=== PATIENT | male | born 1935 | race Caucasian/White ===

== ENCOUNTER 2017-02-10 09:20 | Outpatient (RCR) | payer MEDICARE, OTHER ==
[~2017-02-10 09:20] MED LIST: AMLODIPINE BESYL5 MG PO; METOPROLOL SUCC50 MG PO; MINERAL OIL/PETROLAT/GLYCERI 6OZ BTL ONE; MUPIROCIN 2% OINT 22 GM TUBE ONE; PRAVASTATIN SOD20 MG PO; QUINAPRIL HCL20 MG PO; SUCRALFATE1 GM PO; WARFARIN SODIUM5 MG PO; ZANTAC150 MG PO
== END 2017-02-23 ==
LOC: WCC 09:20
PROVIDERS: ATTEND Plastic Surgery
DX: C43.59 Malignant melanoma of other part of trunk (principal); I79.8 Other disorders of arteries, arterioles and capillaries in diseases classified elsewhere; I87.2 Venous insufficiency (chronic) (peripheral); I10 Essential (primary) hypertension; E78.2 Mixed hyperlipidemia
CPT/HCPCS: 29581 ×4; G0463 ×2

== ENCOUNTER 2017-06-19 11:26 | Observation (INO) | payer MEDICARE, OTHER ==
[2017-06-18 10:27] LABS: BASOPHILS # (AUTO) 0.1 (0.0-0.1); BASOPHILS % 1.2 % (0.0-1.0); EOSINOPHILS # (AUTO) 0.2 (0.0-0.4); EOSINOPHILS % 3.7 % (0.0-6.0); HEMATOCRIT 43.7 % (38.2-49.6); HEMOGLOBIN 14.2 g/dL (14.0-18.0); LYMPHOCYTES # (AUTO) 0.7 (1.0-3.2); LYMPHOCYTES % 13.7 % (18.0-39.1); MEAN CORPUSCULAR HEMOGLOBIN 31.5 pg (28-32); MEAN CORPUSCULAR HGB CONC 32.5 g/dL (31-35); MEAN CORPUSCULAR VOLUME 96.9 fL (81-99); MONOCYTES # (AUTO) 0.7 (0.2-0.8); MONOCYTES % 12.7 % (4.4-11.3); NEUTROPHILS # (AUTO) 3.5 (2.1-6.9); NEUTROPHILS % 68.5 % (38.7-80.0); PLATELET COUNT 110 x10e3/uL (140-360); RED BLOOD COUNT 4.51 x10e6/uL (4.3-5.7); RED CELL DISTRIBUTION WIDTH 13.9 % (11.7-14.4)
[2017-06-18 10:41] LABS: INR 1.52; PROTHROMBIN TIME 17.2 seconds (11.9-14.5)
[2017-06-18 10:48] LABS: ANION GAP 12.6 mmol/L (8-16); BLOOD UREA NITROGEN 16 mg/dL (7-26); BUN/CREATININE RATIO 20 (6-25); CALCIUM 9.9 mg/dL (8.4-10.2); CARBON DIOXIDE 32 mmol/L (22-29); CHLORIDE 99 mmol/L (98-107); EST GLOMERULAR FILTRATION RATE > 60 ML/MIN (60-); GLUCOSE 103 mg/dL (74-118); POTASSIUM 4.6 mmol/L (3.5-5.1); SODIUM 139 mmol/L (136-145)
[~2017-06-19] VITALS: Ht 175.3 cm; Wt 75.7 kg
[2017-06-19] VITALS (8 sets, daily range): BP systolic 122–144; BP diastolic 77–96
[~2017-06-19 11:26] MED LIST changes: -MINERAL OIL/PETROLAT/GLYCERI 6OZ BTL ONE; -MUPIROCIN 2% OINT 22 GM TUBE ONE
[2017-06-19] MEDS ORDERED: LASIX40 MG PO (12:15)
[2017-06-19] MEDS ORDERED: POTASSIUM CHLO10 ME1 PO (12:16)
[2017-06-19] MEDS ORDERED: COLACE100 MG PO (12:17)
[2017-06-19] MEDS ORDERED: LIDOCAINE HCL 2% LOCAL 20 ML VIAL ONE (15:14)
[2017-06-19] MEDS ORDERED: SODIUM CHLORIDE 0.9% 250ML 250 ML ONE (15:15)
[2017-06-19] MEDS ORDERED: SODIUM CHLORIDE 0.9% 1000ML 1,000 ML ONE (15:15)
[2017-06-19] MEDS ORDERED: VANCOMYCIN 1GM/NS 250 ML 0 ML ONE (15:15)
[2017-06-19] MEDS ORDERED: VANCOMYCIN HCL 2 GM in SODIUM CHLORIDE 0.9% 500ML 500 ML IV ONE (15:30)
[2017-06-19] MEDS ORDERED: BACITRACIN 50,000 UNIT VIAL ONE (16:11)
[2017-06-19] MEDS ORDERED: MIDAZOLAM HCL 2 MG/2 ML VIAL ONE (16:20)
[2017-06-19] MEDS ORDERED: SODIUM CHLORIDE 0.9% 500ML 500 ML ONE (16:21)
[2017-06-19] MEDS ORDERED: FENTANYL CITRATE/PF 100MCG/2 ML INJ ONE (16:25)
[2017-06-19] MEDS ORDERED: MORPHINE SULFATE 2 MG/ML SYR IV PRN (18:45)
[2017-06-19] MEDS ORDERED: VANCOMYCIN 1GM/NS 250 ML 250 ML IV ONE (19:00)
--- NOTE | 2017-06-19 20:48 | Diagnostic Imaging Report ---
EXAMINATION: CHEST SINGLE (PORTABLE) INDICATION: \S\POST ICD PLACEMENT \S\[id number] \S\1900 \S\PATIENT IS IN ACU BAY 9 COMPARISON: 08/07/2016 FINDINGS: TUBES and LINES: Left chest dual lead cardiac device with 2 leads over the heart. LUNGS: Hypoinflated lungs with pulmonary vascular congestion and likely atelectasis at the lung bases right side greater than left PLEURA: Likely small right pleural effusion. No pneumothorax is seen. HEART AND MEDIASTINUM: Cardiomegaly with pulmonary vascular congestion. BONES AND SOFT TISSUES: No acute osseous lesion. Soft tissues are unremarkable. UPPER ABDOMEN: No free air under the diaphragm. IMPRESSION: Cardiomegaly with pulmonary vascular congestion and likely small right pleural effusion. Left chest dual lead cardiac device with leads over the heart. No pneumothorax is seen. Follow-up imaging is indicated to document clearing. Signed by: Dr. Rodríguez Vogel M.D. on 06/19/2017 8:45 PM
[2017-06-20] VITALS: BP 126/77
[2017-06-20 04:00] VITALS: BP 133/80
[2017-06-20 08:38] VITALS: BP 136/77
[2017-06-20 11:02] VITALS: BP 136/77
[2017-06-20] MEDS ORDERED: MINOCYCLINE HCL50 MG PO (11:07)
[2017-06-20] MEDS ORDERED: ULTRAM50 MG PO (11:08)
--- NOTE | 2017-07-09 13:43 | Operative Report ---
DATE OF PROCEDURE: June 19, 2017 PREPROCEDURE DIAGNOSES 1. Complete heart block. 2. Significant right ventricular pacing. 3. Permanent atrial fibrillation. 4. Congestive heart failure, class III, likely worsened by right ventricular pacing. 5. Single-chamber pacemaker in place. 6. 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 POSTPROCEDURE DIAGNOSES 1. Complete heart block. 2. Significant right ventricular pacing. 3. Permanent atrial fibrillation. 4. Congestive heart failure, class III, likely worsened by right ventricular pacing. 5. Single-chamber pacemaker in place. 6. 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 ESTIMATED BLOOD LOSS: 5 mL. COMPLICATIONS: None. PROCEDURES PERFORMED 1. Upgrade to biventricular cardiac defibrillator. 2. Moderate sedation. Moderate conscious sedation was provided under my direct supervision by sedation-trained nurse. Sedation approximate time 45 minutes. There were no complications. See sedation form for details. DESCRIPTION OF PROCEDURE: After informed consent was obtained, the patient was brought to the electrophysiology laboratory in a fasting, nonsedated state. The area over his chest was prepped and draped in the usual sterile fashion. Moderate sedation and prophylactic antibiotic were given. One percent lidocaine was used as local anesthetic. A 3-cm skin incision was made in the left subclavicular area. Electrocautery and sharp and blunt dissection were used to reach the previous device, and the pacemaker was freed out of the pocket. Vascular access was obtained x2 in the left axillary vein using the modified Seldinger technique and venogram, and 9 and 9.5 [place] sheaths were placed. The ventricular lead was advanced to the RV apex. R wave 10, pacing 0.7 at 0.5, impedance 500. Then the coronary sinus was cannulated using AL2 catheter and a Wholey wire. The CS angiogram demonstrated a good posterolateral branch. The lead was placed. Pacing threshold 0.8 at 0.5, impedance 674. All sheaths were removed from the body. The leads were secured to the fascia using #0 silk. The pocket was irrigated with antibiotic solution using the pulse enterprise application analyst. Hemostasis was meticulous. Leads were connected to the device. The entire defibrillator system was placed in the pocket. The incision was closed using Vicryl and Dermabond. The patient tolerated the procedure well. The procedure was deemed complete. Of note, the old pacemaker pace/sense lead was capped and kept in the pocket. SUMMARY OF HARDWARE IMPLANTED 1. The new defibrillator is [employer], model #[id number], [id number]. 2. The new right ventricular lead is [employer] 6777, [id number]. 3. The new left ventricular lead is [employer] 5773, [id number]. IMPRESSION: Successful upgrade to biventricular cardiac defibrillator. PLAN 1. Routine postop monitoring on telemetry bed. 2. Chest x-ray. 3. Follow up in 2 weeks. Job#: [id number]
== END 2017-06-20 11:38 | disposition home or self-care (01) ==
LOC: CATH LAB 11:26 → MED/SURG 19:13
PROVIDERS: ADMIT Internal Medicine; ATTEND Internal Medicine
DX: I44.2 Atrioventricular block, complete (principal); I11.0 Hypertensive heart disease with heart failure; I50.20 Unspecified systolic (congestive) heart failure; Z45.018 Encounter for adjustment and management of other part of cardiac pacemaker; I49.5 Sick sinus syndrome; I42.0 Dilated cardiomyopathy; I48.2 Chronic atrial fibrillation; G47.30 Sleep apnea, unspecified; E66.9 Obesity, unspecified; M81.0 Age-related osteoporosis without current pathological fracture; Z88.0 Allergy status to penicillin; Z88.5 Allergy status to narcotic agent; Z01.812 Encounter for preprocedural laboratory examination; Z68.44 Body mass index [BMI] 60.0-69.9, adult
CPT/HCPCS: 33233; 33249; 36415; 71045; 75827; 80048; 85025; 85610; C1769 ×2; C1777; C1882; C1900; G0378 ×2; J2001; J2250; J3370 ×2; J7030; J7040; J7050; 33225; 33231; 33271; 77002

== ENCOUNTER → 2018-01-23 | Outpatient (RCR) | payer MEDICARE, OTHER ==
[~2018-01-23] MED LIST changes: +COLACE100 MG PO; +LASIX40 MG PO; +MINOCYCLINE HCL50 MG PO; +POTASSIUM CHLO10 ME1 PO; +ULTRAM50 MG PO
== END ==
LOC: WCC 01-20 11:55
PROVIDERS: ATTEND Family Medicine Adult Medicine
DX: I87.332 Chronic venous hypertension (idiopathic) with ulcer and inflammation of left lower extremity (principal); L97.821 Non-pressure chronic ulcer of other part of left lower leg limited to breakdown of skin; S30.810A Abrasion of lower back and pelvis, initial encounter; R60.0 Localized edema; I87.2 Venous insufficiency (chronic) (peripheral); I79.8 Other disorders of arteries, arterioles and capillaries in diseases classified elsewhere; C43.59 Malignant melanoma of other part of trunk; I10 Essential (primary) hypertension; R13.12 Dysphagia, oropharyngeal phase; I48.91 Unspecified atrial fibrillation; I50.9 Heart failure, unspecified; E78.2 Mixed hyperlipidemia; H60.399 Other infective otitis externa, unspecified ear; N40.0 Benign prostatic hyperplasia without lower urinary tract symptoms

== ENCOUNTER 2018-02-06 10:54 | Outpatient (RCR) | payer MEDICARE, OTHER ==
[2018-01-27 13:20] LABS: BASOPHILS # (AUTO) 0.1 (0.0-0.1); EOSINOPHILS # (AUTO) 0.3 (0.0-0.4); HEMATOCRIT 42.5 % (38.2-49.6); HEMOGLOBIN 13.7 g/dL (14.0-18.0); LYMPHOCYTES # (AUTO) 0.6 (1.0-3.2); LYMPHOCYTES % 10.7 % (18.0-39.1); MEAN CORPUSCULAR HEMOGLOBIN 32.5 pg (28-32); MEAN CORPUSCULAR HGB CONC 32.2 g/dL (31-35); MEAN CORPUSCULAR VOLUME 100.7 fL (81-99); MONOCYTES # (AUTO) 0.8 (0.2-0.8); MONOCYTES % 14.4 % (4.4-11.3); NEUTROPHILS # (AUTO) 3.6 (2.1-6.9); NEUTROPHILS % 68.7 % (38.7-80.0); PLATELET COUNT 113 x10e3/uL (140-360); RED BLOOD COUNT 4.22 x10e6/uL (4.3-5.7); RED CELL DISTRIBUTION WIDTH 13.9 % (11.7-14.4)
[2018-01-27 14:15] LABS: ALANINE AMINOTRANSFERASE 10 IU/L (0-55); ALBUMIN 3.3 g/dL (3.5-5.0); ALBUMIN/GLOBULIN RATIO 0.6 (0.8-2.0); ALKALINE PHOSPHATASE 74 IU/L (40-150); ANION GAP 11.8 mmol/L (8-16); BLOOD UREA NITROGEN 12 mg/dL (7-26); BUN/CREATININE RATIO 18 (6-25); CALCIUM 9.8 mg/dL (8.4-10.2); CARBON DIOXIDE 34 mmol/L (22-29); CHLORIDE 99 mmol/L (98-107); CREATININE, SERUM 0.67 mg/dL (0.72-1.25); EST GLOMERULAR FILTRATION RATE > 60 ML/MIN (60-); GLUCOSE 87 mg/dL (74-118); POTASSIUM 3.8 mmol/L (3.5-5.1); SODIUM 141 mmol/L (136-145)
[2018-01-27 14:47] LABS: ERYTHROCYTE SEDIMENTATION RATE 63 mm/hr (0-13)
[~2018-02-06 10:54] MED LIST changes: +FLUOCINONIDE 0.05% 1 EA/15 GM TUBE ONE; +LIDOCAINE/PRILOCAINE 2.5-2.5% KIT ONE; +MINERAL OIL/PETROLAT/GLYCERI 6OZ BTL ONE
== END 2018-02-23 ==
LOC: WCC 10:54
PROVIDERS: ATTEND Family Medicine Adult Medicine
DX: I87.332 Chronic venous hypertension (idiopathic) with ulcer and inflammation of left lower extremity (principal); L97.821 Non-pressure chronic ulcer of other part of left lower leg limited to breakdown of skin; S40.811A Abrasion of right upper arm, initial encounter; S30.810A Abrasion of lower back and pelvis, initial encounter; C43.59 Malignant melanoma of other part of trunk; R60.0 Localized edema; I87.2 Venous insufficiency (chronic) (peripheral); I79.8 Other disorders of arteries, arterioles and capillaries in diseases classified elsewhere; I10 Essential (primary) hypertension; E87.2 Acidosis; H60.399 Other infective otitis externa, unspecified ear; I48.91 Unspecified atrial fibrillation; I50.9 Heart failure, unspecified; N40.0 Benign prostatic hyperplasia without lower urinary tract symptoms; R13.12 Dysphagia, oropharyngeal phase; Y92.099 Unspecified place in other non-institutional residence as the place of occurrence of the external cause
CPT/HCPCS: 36415; 80053; 84134; 85025; 85651

== ENCOUNTER 2018-03-19 08:28 | Emergency (ER) | payer MEDICARE, OTHER ==
[~2018-03-19] VITALS: Ht 175.3 cm; Wt 74.4 kg
[~2018-03-19 08:28] MED LIST changes: -FLUOCINONIDE 0.05% 1 EA/15 GM TUBE ONE; -LIDOCAINE/PRILOCAINE 2.5-2.5% KIT ONE; -MINERAL OIL/PETROLAT/GLYCERI 6OZ BTL ONE
--- OUTSIDE RECORDS SUMMARY | 2018-03-19 08:32 | XMS REPORT ---
Author Author [facility] Address Unknown Phone Unavailable Care Team Providers Care Tank Filler Name Role Phone HOLA ONTIVEROS Unavailable Unavailable Problems This patient has no known problems. Allergies, Adverse Reactions, Alerts This patient has no known allergies or adverse reactions. Medications This patient has no known medications. Results Test Description Test Time Test Comments Text Results Atomic Results Result Comments CHEST SINGLE (PORTABLE) [place] [address] Patient Name: FRANCESCA MEEK MR #: [id number] : 1935 Age/Sex: 81/M Req #: [id number] Adm Physician: HOLA ONTIVEROS MD Ordered by: HOLA ONTIVEROS MD Report #: [id number] Location: MED/SURG Room/Bed: [facility] Procedure: [id number] DX/CHEST SINGLE (PORTABLE) Exam Date: 06/19/17 Exam Time: 1900 REPORT STATUS: Signed EXAMINATION: CHEST SINGLE (PORTABLE) INDICATION: COMPARISON: 08/07/2016 FINDINGS: TUBES and LINES: Left chest dual lead cardiac device with 2 leads over the heart. LUNGS: Hypoinflated lungs with pulmonary vascular congestion and likely atelectasis at the lung bases right side greater than left PLEURA: Likely small right pleural effusion. No pneumothorax is seen. HEART AND MEDIASTINUM: Cardiomegaly with pulmonary vascular congestion. BONES AND SOFT TISSUES: No acute osseous lesion. Soft tissues are unremarkable. UPPER ABDOMEN: No free air under the diaphragm. IMPRESSION: Cardiomegaly with pulmonary vascular congestion and likely small right pleural effusion. Left chest dual lead cardiac device with leads over the heart. No pneumothorax is seen. Follow-up imaging is indicated to document clearing. Signed by: Dr. Rodrgíuez Vogel M.D. on 06/19/2017 8:45 PM Dictated By: RODRÍGUEZ VOGEL MD, MD 44 Transcribed By: JENNIFER on 06/19/172044 COPY TO: HOLA ONTIVEROS MD
[2018-03-19] MEDS ORDERED: OXYMETAZOLINE HCL 0.05% NAS 1 SPRAY BTL STA (08:34)
[2018-03-19 08:58] LABS: BASOPHILS # (AUTO) 0.1 (0.0-0.1); BASOPHILS % 0.8 % (0.0-1.0); EOSINOPHILS # (AUTO) 0.2 (0.0-0.4); EOSINOPHILS % 2.6 % (0.0-6.0); HEMATOCRIT 40.2 % (38.2-49.6); HEMOGLOBIN 13.2 g/dL (14.0-18.0); LYMPHOCYTES % 13.8 % (18.0-39.1); MEAN CORPUSCULAR HEMOGLOBIN 32.5 pg (28-32); MEAN CORPUSCULAR HGB CONC 32.8 g/dL (31-35); MONOCYTES # (AUTO) 0.8 (0.2-0.8); MONOCYTES % 10.4 % (4.4-11.3); NEUTROPHILS # (AUTO) 5.3 (2.1-6.9); NEUTROPHILS % 72.3 % (38.7-80.0); PLATELET COUNT 142 x10e3/uL (140-360); RED BLOOD COUNT 4.06 x10e6/uL (4.3-5.7); RED CELL DISTRIBUTION WIDTH 13.2 % (11.7-14.4)
--- NOTE | 2018-03-19 09:05 | NUR ---
Bleeding noted to have stopped at this time. notified.
[2018-03-19 09:11] LABS: INR 1.07; PROTHROMBIN TIME 14.9 seconds (11.9-14.5)
[2018-03-19 09:12] LABS: PARTIAL THROMBOPLASTIN TIME 36.7 seconds (23.8-35.5)
[2018-03-19 09:18] LABS: ALANINE AMINOTRANSFERASE 9 IU/L (0-55); ALBUMIN/GLOBULIN RATIO 0.7 (0.8-2.0); ALKALINE PHOSPHATASE 65 IU/L (40-150); ANION GAP 10.9 mmol/L (8-16); BLOOD UREA NITROGEN 11 mg/dL (7-26); BUN/CREATININE RATIO 16 (6-25); CALCIUM 9.4 mg/dL (8.4-10.2); CARBON DIOXIDE 35 mmol/L (22-29); CHLORIDE 99 mmol/L (98-107); CREATININE, SERUM 0.67 mg/dL (0.72-1.25); EST GLOMERULAR FILTRATION RATE > 60 ML/MIN (60-); GLUCOSE 120 mg/dL (74-118); POTASSIUM 3.9 mmol/L (3.5-5.1); SODIUM 141 mmol/L (136-145)
[2018-03-19 09:41] VITALS: BP 145/75
== END 2018-03-19 09:55 | disposition home or self-care (01) ==
LOC: ER 08:28
DX: R04.0 Epistaxis (principal); D69.6 Thrombocytopenia, unspecified; I10 Essential (primary) hypertension; I50.9 Heart failure, unspecified; Z95.810 Presence of automatic (implantable) cardiac defibrillator
CPT/HCPCS: 36415; 80053; 85025; 85610; 85730; 99284

== ENCOUNTER → 2020-01-06 | Outpatient (CLI) | payer OTHER, MEDICARE ==
[2020-01-06 12:54] LABS: BASOPHILS # (AUTO) 0.1 (0.0-0.1); BASOPHILS % 1.1 % (0.0-1.0); EOSINOPHILS # (AUTO) 0.3 (0.0-0.4); EOSINOPHILS % 4.6 % (0.0-6.0); HEMATOCRIT 35.8 % (38.2-49.6); HEMOGLOBIN 10.3 g/dL (14.0-18.0); LYMPHOCYTES # (AUTO) 0.5 (1.0-3.2); LYMPHOCYTES % 9.7 % (18.0-39.1); MEAN CORPUSCULAR HEMOGLOBIN 27.8 pg (28-32); MEAN CORPUSCULAR HGB CONC 28.8 g/dL (31-35); MEAN CORPUSCULAR VOLUME 96.5 fL (81-99); MONOCYTES # (AUTO) 0.8 (0.2-0.8); MONOCYTES % 14.2 % (4.4-11.3); NEUTROPHILS # (AUTO) 3.9 (2.1-6.9); NEUTROPHILS % 70.2 % (38.7-80.0); PLATELET COUNT 139 x10e3/uL (140-360); RED BLOOD COUNT 3.71 x10e6/uL (4.3-5.7); RED CELL DISTRIBUTION WIDTH 15.5 % (11.7-14.4)
[2020-01-06 13:23] LABS: ALANINE AMINOTRANSFERASE 7 IU/L (0-55); ALBUMIN 3.1 g/dL (3.5-5.0); ALBUMIN/GLOBULIN RATIO 0.6 (0.8-2.0); ALKALINE PHOSPHATASE 72 IU/L (40-150); ANION GAP 12.8 mmol/L (8-16); BLOOD UREA NITROGEN 19 mg/dL (7-26); BUN/CREATININE RATIO 27 (6-25); CALCIUM 9.1 mg/dL (8.4-10.2); CARBON DIOXIDE 33 mmol/L (22-29); CHLORIDE 99 mmol/L (98-107); CREATININE, SERUM 0.71 mg/dL (0.72-1.25); EST GLOMERULAR FILTRATION RATE > 60 ML/MIN (60-); GLUCOSE 91 mg/dL (74-118); POTASSIUM 3.8 mmol/L (3.5-5.1); SODIUM 141 mmol/L (136-145)
== END ==
LOC: LAB 12:36
PROVIDERS: ATTEND Family Medicine
DX: J44.9 Chronic obstructive pulmonary disease, unspecified (principal)
CPT/HCPCS: 36415; 80053; 83880; 85025

== ENCOUNTER 2020-01-12 14:53 | Inpatient (IN) | payer MEDICARE, OTHER ==
[~2020-01-12] VITALS: Ht 175.3 cm; Wt 93.6 kg
[2020-01-12] MEDS ORDERED: CEFTRIAXONE SOD 1 GM/NS 50 ML 50 ML IV ONE (15:45)
[2020-01-12 15:52] LABS: BASOPHILS # (AUTO) 0.1 (0.0-0.1); BASOPHILS % 0.7 % (0.0-1.0); EOSINOPHILS # (AUTO) 0.3 (0.0-0.4); EOSINOPHILS % 4.3 % (0.0-6.0); HEMOGLOBIN 10.4 g/dL (14.0-18.0); LYMPHOCYTES # (AUTO) 0.5 (1.0-3.2); LYMPHOCYTES % 6.8 % (18.0-39.1); MEAN CORPUSCULAR HEMOGLOBIN 27.7 pg (28-32); MEAN CORPUSCULAR HGB CONC 28.9 g/dL (31-35); MEAN CORPUSCULAR VOLUME 95.7 fL (81-99); MONOCYTES # (AUTO) 0.9 (0.2-0.8); MONOCYTES % 12.5 % (4.4-11.3); NEUTROPHILS # (AUTO) 5.3 (2.1-6.9); NEUTROPHILS % 75.6 % (38.7-80.0); PLATELET COUNT 152 x10e3/uL (140-360); RED BLOOD COUNT 3.76 x10e6/uL (4.3-5.7); RED CELL DISTRIBUTION WIDTH 15.4 % (11.7-14.4)
[2020-01-12 15:57] LABS: CLARITY,URINE SL CLOUDY (CLEAR); COLOR,URINE AMBER (YELLOW); LEUKOCYTE ESTERASE ,URINE NEGATIVE (NEGATIVE); NITRITE,URINE NEGATIVE (NEGATIVE)
[2020-01-12 15:58] LABS: KETONES,URINE NEGATIVE (NEGATIVE); PROTEIN,URINE DIPSTICK TRACE (NEGATIVE); URINE UROBILINOGEN 1 mg/dL (0.2 - 1)
[2020-01-12] MEDS ORDERED: FLUCONAZOLE 400MG/200ML BAG 200 ML IV ONE (16:00)
[2020-01-12 16:06] LABS: BACTERIA,URINE FEW /HPF
[2020-01-12 16:22] LABS: ALANINE AMINOTRANSFERASE 7 IU/L (0-55); ALBUMIN 3.2 g/dL (3.5-5.0); ALBUMIN/GLOBULIN RATIO 0.6 (0.8-2.0); ALKALINE PHOSPHATASE 64 IU/L (40-150); BLOOD UREA NITROGEN 17 mg/dL (7-26); BUN/CREATININE RATIO 24 (6-25); CARBON DIOXIDE 35 mmol/L (22-29); CHLORIDE 99 mmol/L (98-107); CREATININE, SERUM 0.72 mg/dL (0.72-1.25); EST GLOMERULAR FILTRATION RATE > 60 ML/MIN (60-); GLUCOSE 103 mg/dL (74-118); SODIUM 144 mmol/L (136-145)
[2020-01-12 18:00] VITALS: BP 129/74
[2020-01-12 20:00] VITALS: BP 123/60
[2020-01-12 20:51] VITALS: BP 129/74
[2020-01-13] VITALS (9 sets, daily range): BP systolic 96–126; BP diastolic 42–78
[2020-01-13 06:05] LABS: BASOPHILS % 0.6 % (0.0-1.0); EOSINOPHILS # (AUTO) 0.3 (0.0-0.4); EOSINOPHILS % 4.4 % (0.0-6.0); HEMOGLOBIN 9.8 g/dL (14.0-18.0); LYMPHOCYTES # (AUTO) 0.5 (1.0-3.2); LYMPHOCYTES % 7.3 % (18.0-39.1); MEAN CORPUSCULAR HEMOGLOBIN 27.3 pg (28-32); MEAN CORPUSCULAR VOLUME 97.5 fL (81-99); MONOCYTES # (AUTO) 1.1 (0.2-0.8); MONOCYTES % 17.8 % (4.4-11.3); NEUTROPHILS # (AUTO) 4.3 (2.1-6.9); NEUTROPHILS % 69.6 % (38.7-80.0); PLATELET COUNT 160 x10e3/uL (140-360); RED BLOOD COUNT 3.59 x10e6/uL (4.3-5.7); RED CELL DISTRIBUTION WIDTH 15.3 % (11.7-14.4)
[2020-01-13 06:22] LABS: BLOOD UREA NITROGEN 16 mg/dL (7-26); BUN/CREATININE RATIO 22 (6-25); CALCIUM 8.7 mg/dL (8.4-10.2); CARBON DIOXIDE 37 mmol/L (22-29); CHLORIDE 99 mmol/L (98-107); CREATININE, SERUM 0.72 mg/dL (0.72-1.25); EST GLOMERULAR FILTRATION RATE > 60 ML/MIN (60-); GLUCOSE 104 mg/dL (74-118); SODIUM 142 mmol/L (136-145)
[2020-01-13] MEDS: DOCUSATE SODIUM 100 MG CAP PO SCH (09:40)
[2020-01-13] MEDS: POTASSIUM CHLORIDE 10MEQ EA PO SCH (09:40)
[2020-01-13] MEDS: FUROSEMIDE 40 MG TAB PO SCH (09:40)
[2020-01-13] MEDS ORDERED: FUROSEMIDE INJ 10 MG/ML 4 ML VIAL IV ONE (15:45)
[2020-01-13 17:43] LABS: ABG HCO3 40 mmol/L (22-26); ABG PCO2 88 mmHg (35-45); ABG PH 7.27 (7.35-7.45); ABG PO2 120 mmHg (80-105)
[2020-01-13 17:44] LABS: ABG TCO2 43
[2020-01-13] MEDS ORDERED: CEFTRIAXONE SOD 2 GM/NS 100 ML 100 ML IV SCH (21:45)
[2020-01-13] MEDS: VANCOMYCIN 1GM/NS 250 ML 250 ML IV SCH (22:29)
[2020-01-14] VITALS (9 sets, daily range): BP systolic 110–123; BP diastolic 58–71
[2020-01-14 04:50] LABS: BASOPHILS # (AUTO) 0.1 (0.0-0.1); BASOPHILS % 0.8 % (0.0-1.0); EOSINOPHILS # (AUTO) 0.4 (0.0-0.4); EOSINOPHILS % 4.8 % (0.0-6.0); HEMOGLOBIN 9.7 g/dL (14.0-18.0); LYMPHOCYTES # (AUTO) 0.5 (1.0-3.2); LYMPHOCYTES % 7.2 % (18.0-39.1); MEAN CORPUSCULAR HEMOGLOBIN 27.5 pg (28-32); MEAN CORPUSCULAR HGB CONC 27.7 g/dL (31-35); MEAN CORPUSCULAR VOLUME 99.2 fL (81-99); MONOCYTES # (AUTO) 1.4 (0.2-0.8); MONOCYTES % 19.5 % (4.4-11.3); NEUTROPHILS # (AUTO) 4.9 (2.1-6.9); NEUTROPHILS % 67.4 % (38.7-80.0); PLATELET COUNT 135 x10e3/uL (140-360); RED BLOOD COUNT 3.53 x10e6/uL (4.3-5.7); RED CELL DISTRIBUTION WIDTH 15.1 % (11.7-14.4)
[2020-01-14 05:06] LABS: ANION GAP 10.8 mmol/L (8-16); BLOOD UREA NITROGEN 13 mg/dL (7-26); BUN/CREATININE RATIO 17 (6-25); CALCIUM 8.2 mg/dL (8.4-10.2); CARBON DIOXIDE 39 mmol/L (22-29); CHLORIDE 95 mmol/L (98-107); CREATININE, SERUM 0.75 mg/dL (0.72-1.25); EST GLOMERULAR FILTRATION RATE > 60 ML/MIN (60-); GLUCOSE 100 mg/dL (74-118); POTASSIUM 3.8 mmol/L (3.5-5.1); SODIUM 141 mmol/L (136-145)
[2020-01-14] MEDS: FUROSEMIDE 40 MG TAB PO SCH ×3 (08:08→17:39)
[2020-01-14] MEDS: POTASSIUM CHLORIDE 10MEQ EA PO SCH ×2 (08:08→09:41)
[2020-01-14] MEDS: DOCUSATE SODIUM 100 MG CAP PO SCH ×2 (08:08→09:40)
[2020-01-14] MEDS: COLLAGENASE 5 GM TUBE TP SCH (09:08)
[2020-01-14] MEDS: BALSAM PERU/CASTOR OIL 60 GM OINT...G. TP SCH (09:08)
[2020-01-14 17:36] LABS: ABG HCO3 43 mmol/L (22-26); ABG PCO2 74 mmHg (35-45); ABG PH 7.38 (7.35-7.45); ABG PO2 195 mmHg (80-105); ABG TCO2 46
[2020-01-14] MEDS ORDERED: ACETAZOLAMIDE 250 MG TAB PO ONE (18:25)
[2020-01-14] MEDS: CEFTRIAXONE SOD 2 GM/NS 100 ML 100 ML IV SCH (20:02)
[2020-01-14] MEDS: VANCOMYCIN 1GM/NS 250 ML 250 ML IV SCH (22:13)
[2020-01-15] VITALS (10 sets, daily range): BP systolic 108–120; BP diastolic 57–64
[2020-01-15 06:37] LABS: BASOPHILS # (AUTO) 0.1 (0.0-0.1); BASOPHILS % 0.7 % (0.0-1.0); EOSINOPHILS # (AUTO) 0.3 (0.0-0.4); EOSINOPHILS % 4.6 % (0.0-6.0); HEMATOCRIT 33.3 % (38.2-49.6); HEMOGLOBIN 9.4 g/dL (14.0-18.0); LYMPHOCYTES # (AUTO) 0.5 (1.0-3.2); LYMPHOCYTES % 6.6 % (18.0-39.1); MEAN CORPUSCULAR HEMOGLOBIN 27.6 pg (28-32); MEAN CORPUSCULAR HGB CONC 28.2 g/dL (31-35); MEAN CORPUSCULAR VOLUME 97.7 fL (81-99); MONOCYTES # (AUTO) 1.3 (0.2-0.8); MONOCYTES % 17.7 % (4.4-11.3); NEUTROPHILS % 70.1 % (38.7-80.0); PLATELET COUNT 121 x10e3/uL (140-360); RED BLOOD COUNT 3.41 x10e6/uL (4.3-5.7); RED CELL DISTRIBUTION WIDTH 14.8 % (11.7-14.4)
[2020-01-15 07:01] LABS: ALANINE AMINOTRANSFERASE 6 IU/L (0-55); ALBUMIN 2.7 g/dL (3.5-5.0); ALBUMIN/GLOBULIN RATIO 0.6 (0.8-2.0); ALKALINE PHOSPHATASE 60 IU/L (40-150); ANION GAP 10.5 mmol/L (8-16); BLOOD UREA NITROGEN 15 mg/dL (7-26); BUN/CREATININE RATIO 21 (6-25); CALCIUM 8.2 mg/dL (8.4-10.2); CHLORIDE 92 mmol/L (98-107); EST GLOMERULAR FILTRATION RATE > 60 ML/MIN (60-); GLUCOSE 92 mg/dL (74-118); MAGNESIUM 1.6 MG/DL (1.3-2.1); POTASSIUM 3.5 mmol/L (3.5-5.1); SODIUM 140 mmol/L (136-145)
[2020-01-15 07:09] LABS: CARBON DIOXIDE 41 mmol/L (22-29)
[2020-01-15] MEDS: DOCUSATE SODIUM 100 MG CAP PO SCH (08:24)
[2020-01-15] MEDS: COLLAGENASE 5 GM TUBE TP SCH (08:24)
[2020-01-15] MEDS: POTASSIUM CHLORIDE 10MEQ EA PO SCH (08:24)
[2020-01-15] MEDS: FUROSEMIDE 40 MG TAB PO SCH ×2 (08:24→16:17)
[2020-01-15] MEDS: BALSAM PERU/CASTOR OIL 60 GM OINT...G. TP SCH (08:24)
[2020-01-15 17:19] LABS: ABG HCO3 45 mmol/L (22-26); ABG PCO2 74 mmHg (35-45); ABG PH 7.39 (7.35-7.45); ABG PO2 85 mmHg (80-105); ABG TCO2 47
[2020-01-15] MEDS: CEFTRIAXONE SOD 2 GM/NS 100 ML 100 ML IV SCH (20:35)
[2020-01-15] MEDS: VANCOMYCIN 1GM/NS 250 ML 250 ML IV SCH (22:02)
[2020-01-16] VITALS (8 sets, daily range): BP systolic 117–143; BP diastolic 63–81
[2020-01-16 05:10] LABS: BASOPHILS # (AUTO) 0.1 (0.0-0.1); BASOPHILS % 0.8 % (0.0-1.0); EOSINOPHILS # (AUTO) 0.5 (0.0-0.4); EOSINOPHILS % 6.2 % (0.0-6.0); HEMATOCRIT 34.6 % (38.2-49.6); HEMOGLOBIN 10.2 g/dL (14.0-18.0); LYMPHOCYTES # (AUTO) 0.6 (1.0-3.2); LYMPHOCYTES % 8.8 % (18.0-39.1); MEAN CORPUSCULAR HEMOGLOBIN 27.6 pg (28-32); MEAN CORPUSCULAR HGB CONC 29.5 g/dL (31-35); MEAN CORPUSCULAR VOLUME 93.5 fL (81-99); MONOCYTES # (AUTO) 1.2 (0.2-0.8); NEUTROPHILS % 68.1 % (38.7-80.0); PLATELET COUNT 144 x10e3/uL (140-360); RED CELL DISTRIBUTION WIDTH 14.9 % (11.7-14.4)
[2020-01-16 05:27] LABS: ANION GAP 12.7 mmol/L (8-16); BLOOD UREA NITROGEN 18 mg/dL (7-26); BUN/CREATININE RATIO 25 (6-25); CALCIUM 8.5 mg/dL (8.4-10.2); CARBON DIOXIDE 38 mmol/L (22-29); CHLORIDE 90 mmol/L (98-107); CREATININE, SERUM 0.71 mg/dL (0.72-1.25); EST GLOMERULAR FILTRATION RATE > 60 ML/MIN (60-); GLUCOSE 91 mg/dL (74-118); POTASSIUM 3.7 mmol/L (3.5-5.1); SODIUM 137 mmol/L (136-145)
[2020-01-16] MEDS: DOCUSATE SODIUM 100 MG CAP PO SCH (09:15)
[2020-01-16] MEDS: BALSAM PERU/CASTOR OIL 60 GM OINT...G. TP SCH (09:16)
[2020-01-16] MEDS: COLLAGENASE 5 GM TUBE TP SCH (09:16)
[2020-01-16] MEDS: POTASSIUM CHLORIDE 10MEQ EA PO SCH (09:16)
[2020-01-16] MEDS: FUROSEMIDE 40 MG TAB PO SCH ×2 (09:16→18:00)
[2020-01-16] MEDS ORDERED: ACETAZOLAMIDE 250 MG TAB PO ONE (12:00)
[2020-01-16 12:29] LABS: % IRON SATURATION 21 % (15-50); IRON 51 ug/dL (65-175); TOTAL IRON BINDING CAPACITY 248 ug/dL (261-478); TRANSFERRIN 177 mg/dL (174-364)
[2020-01-16] MEDS: CEFTRIAXONE SOD 2 GM/NS 100 ML 100 ML IV SCH (20:45)
[2020-01-16] MEDS: VANCOMYCIN 1GM/NS 250 ML 250 ML IV SCH (22:05)
[2020-01-17] VITALS (8 sets, daily range): BP systolic 107–145; BP diastolic 61–82
[2020-01-17 05:38] LABS: ANION GAP 10.7 mmol/L (8-16); BLOOD UREA NITROGEN 20 mg/dL (7-26); BUN/CREATININE RATIO 28 (6-25); CALCIUM 8.4 mg/dL (8.4-10.2); CARBON DIOXIDE 38 mmol/L (22-29); CHLORIDE 92 mmol/L (98-107); CREATININE, SERUM 0.71 mg/dL (0.72-1.25); EST GLOMERULAR FILTRATION RATE > 60 ML/MIN (60-); GLUCOSE 98 mg/dL (74-118); POTASSIUM 3.7 mmol/L (3.5-5.1); SODIUM 137 mmol/L (136-145)
[2020-01-17] MEDS: POTASSIUM CHLORIDE 10MEQ EA PO SCH (09:00)
[2020-01-17] MEDS ORDERED: FUROSEMIDE 40 MG TAB PO SCH ×2 (09:00→17:00)
[2020-01-17] MEDS: DOCUSATE SODIUM 100 MG CAP PO SCH (09:00)
[2020-01-17] MEDS: COLLAGENASE 5 GM TUBE TP SCH (09:37)
[2020-01-17] MEDS: NEOMYCIN/POLYMYXIN/BACITRACIN 15 GM TUBE TOP SCH (09:37)
[2020-01-17] MEDS: BALSAM PERU/CASTOR OIL 60 GM OINT...G. TP SCH (09:38)
[2020-01-17 10:06] LABS: FREE THYROXINE INDEX 2.2205 (1.4-3.8); THYROID STIMULATING HORMONE 2.44 uIU/mL (0.350-4.940)
[2020-01-17 10:35] LABS: ABG HCO3 42 mmol/L (22-26); ABG PCO2 77 mmHg (35-45); ABG PH 7.35 (7.35-7.45); ABG PO2 198 mmHg (80-105); ABG TCO2 45
[2020-01-17] MEDS: FUROSEMIDE INJ 10 MG/ML 4 ML VIAL IV SCH (17:11)
[2020-01-17] MEDS: CEFTRIAXONE SOD 2 GM/NS 100 ML 100 ML IV SCH (21:47)
[2020-01-17] MEDS: VANCOMYCIN 1GM/NS 250 ML 250 ML IV SCH (22:16)
[2020-01-18] VITALS: BP 121/63
[2020-01-18 04:00] VITALS: BP 121/62
[2020-01-18 05:23] LABS: BASOPHILS # (AUTO) 0.1 (0.0-0.1); BASOPHILS % 1.4 % (0.0-1.0); EOSINOPHILS # (AUTO) 0.5 (0.0-0.4); EOSINOPHILS % 10.7 % (0.0-6.0); HEMATOCRIT 35.8 % (38.2-49.6); HEMOGLOBIN 10.1 g/dL (14.0-18.0); LYMPHOCYTES # (AUTO) 0.4 (1.0-3.2); LYMPHOCYTES % 8.7 % (18.0-39.1); MEAN CORPUSCULAR HEMOGLOBIN 27.5 pg (28-32); MEAN CORPUSCULAR HGB CONC 28.2 g/dL (31-35); MEAN CORPUSCULAR VOLUME 97.5 fL (81-99); MONOCYTES % 20.4 % (4.4-11.3); NEUTROPHILS # (AUTO) 2.9 (2.1-6.9); NEUTROPHILS % 58.4 % (38.7-80.0); PLATELET COUNT 152 x10e3/uL (140-360); RED BLOOD COUNT 3.67 x10e6/uL (4.3-5.7); RED CELL DISTRIBUTION WIDTH 14.8 % (11.7-14.4)
[2020-01-18 05:37] LABS: ALANINE AMINOTRANSFERASE 7 IU/L (0-55); ALBUMIN 2.4 g/dL (3.5-5.0); ALBUMIN/GLOBULIN RATIO 0.5 (0.8-2.0); ALKALINE PHOSPHATASE 56 IU/L (40-150); ANION GAP 9.9 mmol/L (8-16); BLOOD UREA NITROGEN 22 mg/dL (7-26); BUN/CREATININE RATIO 33 (6-25); CALCIUM 8.4 mg/dL (8.4-10.2); CHLORIDE 93 mmol/L (98-107); CREATININE, SERUM 0.67 mg/dL (0.72-1.25); EST GLOMERULAR FILTRATION RATE > 60 ML/MIN (60-); GLUCOSE 114 mg/dL (74-118); POTASSIUM 3.9 mmol/L (3.5-5.1); SODIUM 140 mmol/L (136-145)
[2020-01-18 05:38] LABS: CARBON DIOXIDE 41 mmol/L (22-29)
[2020-01-18 07:15] VITALS: BP 118/69
[2020-01-18 09:00] VITALS: BP 118/69
[2020-01-18] MEDS: COLLAGENASE 5 GM TUBE TP SCH (09:09)
[2020-01-18] MEDS: BALSAM PERU/CASTOR OIL 60 GM OINT...G. TP SCH (09:09)
[2020-01-18] MEDS: POTASSIUM CHLORIDE 10MEQ EA PO SCH (09:10)
[2020-01-18] MEDS: FUROSEMIDE INJ 10 MG/ML 4 ML VIAL IV SCH (09:10)
[2020-01-18] MEDS: DOCUSATE SODIUM 100 MG CAP PO SCH (09:10)
[2020-01-18] MEDS: NEOMYCIN/POLYMYXIN/BACITRACIN 15 GM TUBE TOP SCH (09:10)
[2020-01-18 10:10] LABS: EOSINOPHILS % (MANUAL) 11 % (0-7); LYMPHOCYTES % (MANUAL) 9 % (19-48); MONOCYTES % (MANUAL) 13 % (3.4-9.0); NEUTROPHILS % (MANUAL) 65 % (40-74)
[2020-01-18 10:11] LABS: HYPOCHROMASIA SLIGHT; PLATELET ESTIMATE ADEQUATE; PLATELET MORPHOLOGY COMMENT NORMAL; RBC MORPHOLOGY COMMENT NORMAL
[2020-01-18] MEDS ORDERED: ACETAZOLAMIDE 250 MG TAB PO ONE (10:30)
[2020-01-18] MEDS: ALBUTEROL/IPRATROPIUM 3 ML NEB NEB SCH ×2 (15:00→19:58)
[2020-01-18 16:00] VITALS: BP 121/57
[2020-01-18 19:11] VITALS: BP 128/65
[2020-01-18] MEDS: CEFTRIAXONE SOD 2 GM/NS 100 ML 100 ML IV SCH (20:25)
[2020-01-18] MEDS: VANCOMYCIN 1GM/NS 250 ML 250 ML IV SCH (22:49)
[2020-01-19] VITALS (9 sets, daily range): BP systolic 59–138; BP diastolic 53–71
[2020-01-19] MEDS: ALBUTEROL/IPRATROPIUM 3 ML NEB NEB SCH ×4 (01:40→20:50)
[2020-01-19 08:24] LABS: BASOPHILS # (AUTO) 0.1 (0.0-0.1); BASOPHILS % 1.1 % (0.0-1.0); EOSINOPHILS # (AUTO) 0.5 (0.0-0.4); EOSINOPHILS % 7.4 % (0.0-6.0); HEMATOCRIT 33.4 % (38.2-49.6); HEMOGLOBIN 9.8 g/dL (14.0-18.0); LYMPHOCYTES # (AUTO) 0.7 (1.0-3.2); LYMPHOCYTES % 10.3 % (18.0-39.1); MEAN CORPUSCULAR HEMOGLOBIN 27.9 pg (28-32); MEAN CORPUSCULAR HGB CONC 29.3 g/dL (31-35); MEAN CORPUSCULAR VOLUME 95.2 fL (81-99); MONOCYTES # (AUTO) 1.3 (0.2-0.8); MONOCYTES % 19.2 % (4.4-11.3); NEUTROPHILS # (AUTO) 4.1 (2.1-6.9); NEUTROPHILS % 61.7 % (38.7-80.0); PLATELET COUNT 144 x10e3/uL (140-360); RED BLOOD COUNT 3.51 x10e6/uL (4.3-5.7); RED CELL DISTRIBUTION WIDTH 15.3 % (11.7-14.4)
[2020-01-19 08:56] LABS: BLOOD UREA NITROGEN 24 mg/dL (7-26); BUN/CREATININE RATIO 35 (6-25); CALCIUM 8.7 mg/dL (8.4-10.2); CHLORIDE 94 mmol/L (98-107); CREATININE, SERUM 0.68 mg/dL (0.72-1.25); EST GLOMERULAR FILTRATION RATE > 60 ML/MIN (60-); GLUCOSE 102 mg/dL (74-118); SODIUM 140 mmol/L (136-145)
[2020-01-19 08:59] LABS: CARBON DIOXIDE 41 mmol/L (22-29)
[2020-01-19] MEDS: FUROSEMIDE INJ 10 MG/ML 4 ML VIAL IV SCH (09:03)
[2020-01-19] MEDS: DOCUSATE SODIUM 100 MG CAP PO SCH (09:03)
[2020-01-19] MEDS: POTASSIUM CHLORIDE 10MEQ EA PO SCH (09:04)
[2020-01-19] MEDS: NEOMYCIN/POLYMYXIN/BACITRACIN 15 GM TUBE TOP SCH (10:33)
[2020-01-19] MEDS: COLLAGENASE 5 GM TUBE TP SCH (10:33)
[2020-01-19] MEDS: BALSAM PERU/CASTOR OIL 60 GM OINT...G. TP SCH (10:33)
[2020-01-19] MEDS ORDERED: SOD PHOSPHATE/SOD BIPHOSPHATE ENEMA 132 ML BTL PR ONE (13:15)
[2020-01-19] MEDS: AMMONIUM LACTATE 12% LOTION 225GM BTL TOP SCH (17:00)
[2020-01-19] MEDS: CEFTRIAXONE SOD 2 GM/NS 100 ML 100 ML IV SCH (20:48)
[2020-01-19] MEDS: VANCOMYCIN 1GM/NS 250 ML 250 ML IV SCH (23:00)
[2020-01-20] MEDS: ALBUTEROL/IPRATROPIUM 3 ML NEB NEB SCH ×2 (01:00→06:30)
[2020-01-20 04:00] VITALS: BP 128/65
[2020-01-20 07:46] VITALS: BP 128/65
[2020-01-20] MEDS: COLLAGENASE 5 GM TUBE TP SCH (08:48)
[2020-01-20] MEDS: NEOMYCIN/POLYMYXIN/BACITRACIN 15 GM TUBE TOP SCH (08:48)
[2020-01-20] MEDS: FUROSEMIDE INJ 10 MG/ML 4 ML VIAL IV SCH (08:48)
[2020-01-20] MEDS: AMMONIUM LACTATE 12% LOTION 225GM BTL TOP SCH (08:48)
[2020-01-20] MEDS: POTASSIUM CHLORIDE 10MEQ EA PO SCH (08:48)
[2020-01-20] MEDS: DOCUSATE SODIUM 100 MG CAP PO SCH (08:48)
[2020-01-20] MEDS: BALSAM PERU/CASTOR OIL 60 GM OINT...G. TP SCH (08:48)
[2020-01-20 09:08] VITALS: BP 128/65
[2020-01-20] MEDS ORDERED: ACETAZOLAMIDE 250 MG TAB PO ONE (10:30)
== END 2020-01-20 10:03 | disposition hospice, home (50) | DRG 291 ==
LOC: ER 15:07 → ERHOLD 16:06 → MED/SURG3 17:30 → IMCU 01-13 20:18 → UNDODISIN 01-20 10:03
PROVIDERS: ADMIT Family Medicine; ATTEND Family Medicine
DX: I11.0 Hypertensive heart disease with heart failure (principal); G93.41 Metabolic encephalopathy; J96.22 Acute and chronic respiratory failure with hypercapnia; J96.21 Acute and chronic respiratory failure with hypoxia; L03.115 Cellulitis of right lower limb; J44.1 Chronic obstructive pulmonary disease with (acute) exacerbation; G93.1 Anoxic brain damage, not elsewhere classified; L03.116 Cellulitis of left lower limb; I50.23 Acute on chronic systolic (congestive) heart failure; I86.1 Scrotal varices; N43.3 Hydrocele, unspecified; G47.33 Obstructive sleep apnea (adult) (pediatric); D64.9 Anemia, unspecified; Z95.810 Presence of automatic (implantable) cardiac defibrillator; Z66 Do not resuscitate; Z51.5 Encounter for palliative care; E66.01 Morbid (severe) obesity due to excess calories; Z68.30 Body mass index [BMI] 30.0-30.9, adult; I89.0 Lymphedema, not elsewhere classified; Z20.828 Contact with and (suspected) exposure to other viral communicable diseases; E87.6 Hypokalemia
CPT/HCPCS: 36415; 36600; 71045; 80048; 80053; 80202; 81001; 82805; 83540; 83605; 83735; 83880; 84436; 84443; 84466; 84479; 84484; 85025; 87040; 93306; 93971; 94640; 94660; 97139; 99251; 99284; J0696; J1450; J1940; J3370; U0002